=== PATIENT | female | born 1965 | race Caucasian/White ===

== ENCOUNTER 2018-10-29 07:19 | Day surgery (SDC) | payer OTHER ==
[~2018-10-29] VITALS: Ht 167.6 cm; Wt 79.5 kg
[2018-10-29] VITALS (13 sets, daily range): BP systolic 117–144; BP diastolic 46–74; PULSE 54–68; RESP 9–20; Ht 167.6 cm; Wt 79.5 kg
[2018-10-29] MEDS ORDERED: SOD CHLORIDE 0.9% 1,000 ML IV SCH (09:00)
--- NOTE | 2018-10-29 10:10 | PREAC ---
Date/Time of Note Date/Time of Note DATE: 10/29/18 TIME: 10:09 Anesthesia Eval and Record Evaluation Time Pre-Procedure Interview DATE: 10/29/18 TIME: 10:09 Age 53 Sex female NPO: 8 hrs Preoperative diagnosis left chest wall cyst Planned procedure left chest wall cyst excision Past Medical History Past Medical History: Includes GI: Obesity Surgery & Anesthesia Issues No known issue Meds Anticoagulation: No Beta Brayan within 24 hr: No Reason Beta Brayan not given: Pt. not on B-Brayan No Active Prescriptions or Reported Meds Current Medications Sodium Chloride 1,000 ml @ 75 mls/hr [id number] IV Last administered on 10/29/18at 09:00; Admin Dose 75 MLS/HR; Start 10/29/18 at 09:00 Meds reviewed: Yes Allergies Coded Allergies: No Known Allergy (Unverified , 10/29/18) Allergies Reviewed: Yes Labs/Studies Labs Reviewed: Reviewed by anesthesiologist Result Diagram: 10/29/18 0840 10/29/18 0840 Laboratory Tests 10/29/18 08:40 test: Negative Pre-procedure Exam Last vitals Vital Signs Date Temp Pulse Resp B/P (MAP) Pulse Ox O2 O2 Flow FiO2 Time Delivery Rate 10/29/18 97.8 60 16 117/58 99 08:53 (77) Airway: Adequate mouth opening, Adequate thyromental dist Mallampati: Mallampati III Teeth: Normal Lung: Normal Heart: Normal ASA Physical Status ASA physical status: 2 Emergency: None Planned Anesthetic General/MAC: LMA Pre-operative Attestations Prior to commencing anesthesia and surgery, the patient was re-evaluated, there was verification of: *The patient's identity *The results of appropriate recent lab work and preoperative vital signs *The above evaluation not changing prior to induction *Anesthetic plan, risk benefits, alternative and complications discussed with patient/family; questions answered; patient/family understands, accepts and wishes to proceed. HARRY MCCRAY SLACKMAN Oct 29, 2018 10:10
[2018-10-29] MEDS ORDERED: MIDAZOLAM 1 MG/ML 2 ML INJ ONE (10:15)
[2018-10-29] MEDS ORDERED: FENTAnyl 50 MCG/ML VIAL ONE (10:15)
[2018-10-29] MEDS ORDERED: LIDOCAINE 2% (SDV) 5 ML INJ ONE (10:18)
[2018-10-29] MEDS ORDERED: PROPOFOL 20 ML ONE (10:18)
[2018-10-29] MEDS ORDERED: CEFAZOLIN 1 GM INJ ONE (10:18)
[2018-10-29] MEDS ORDERED: BUPIVACAINE 0.25%/EPI (SDV) 30 ML INJ ONE (10:33)
[2018-10-29] MEDS ORDERED: EPHEDrine 25 MG/5 ML SYG ONE (11:09)
[2018-10-29] MEDS ORDERED: ONDANSETRON 4 MG INJ ONE (11:10)
[2018-10-29] MEDS ORDERED: DEXAMETHASONE 4 MG/ML 5 ML INJ ONE (11:10)
--- NOTE | 2018-10-29 11:40 | PAC ---
Date/Time of Note Date/Time of Note DATE: 10/29/18 TIME: 11:40 Post-Anesthesia Notes Post-Anesthesia Note Last documented vital signs 140/57, 96%, 55, RR15 Vital Signs Date Temp Pulse Resp B/P (MAP) Pulse Ox O2 O2 Flow FiO2 Time Delivery Rate 10/29/18 97.8 60 16 117/58 99 08:53 (77) Activity: WNL Respiratory function: WNL Cardiovascular function: WNL Mental status: Baseline Pain reasonably controlled: Yes Hydration appropriate: Yes Nausea/Vomiting absent: Yes HARRY MCCRAY CRNA Oct 29, 2018 11:40
--- NOTE | 2018-10-29 11:48 | SIPON ---
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 Pigmented skin lesion adjacent to this subcutaneous lesion. Postoperative Diagnosis The same pending pathology report. Operation/Procedure Performed Excision of the subcutaneous lesion with piece of skin on top of it. Section of the pigmented lesion with piece of the skin around it and subcutaneous tissue. Surgeon see signature line classroom assistant None Anesthesia: general Estimated blood loss: none Transfusion Required none Specimen Two specimens were sent for pathology evaluation. #1 labeled a which is the chronic lesion subcutaneously which has had recurrent drainage, orientation just proximal 2 long sutures. 2. Pigmented skin lesion which was marked with 2 short sutures distal part. Grafts/Implants none Complications none DARRYL AREVALO MD Oct 29, 2018 11:48
[2018-10-29] MEDS ORDERED: LACTATED RINGER'S 1,000 ML IV SCH (11:51)
[2018-10-29] MEDS ORDERED: ONDANSETRON 4 MG INJ IV PRN ×2 (12:00)
[2018-10-29] MEDS ORDERED: OXYCODONE/ACETAMINOPHEN (5/325) TAB PO PRN ×2 (12:00)
[2018-10-29] MEDS ORDERED: LABETALOL HCL 20MG INJ IV PRN (12:00)
[2018-10-29] MEDS ORDERED: FENTAnyl 50 MCG/ML VIAL IV PRN ×2 (12:00)
[2018-10-29] MEDS ORDERED: MEPERIDINE 25 MG INJ IV PRN (12:00)
[2018-10-29] MEDS ORDERED: HYDROCODONE/APAP (5/325) TAB PO PRN (12:00)
--- NOTE | 2018-10-29 23:19 | OPR ---
DATE OF OPERATION: 10/29/2018 SURGEON: Zeke Arevalo MD SPECIFICATION MANAGER: None. ANESTHESIA: General and local. ANESTHESIOLOGIST: Certified nurse tube bender Collin Varghese. ESTIMATED BLOOD LOSS: Nil. PREOPERATIVE DIAGNOSES: 1. Chronic infection in the anterior left upper chest wall and recurrent drainage and subcutaneous m ass. 2. Pigmented skin lesion at the same location which has been there for about a year, suspicious that recently has been changing in color. OPERATION PERFORMED: Elliptical skin incision and removal of the subcutaneous mass and also pigmente d lesion in 2 pieces. Specimen A marked with 2 long sutures, orientation proximal end. The second s pecimen, marked specimen B, is the pigmented lesion with the skin around it and subcutaneous tissue, marked with 2 short sutures, sent for pathologic evaluation. COMPLICATIONS: None. INDICATION: This is a 53-year-old female who presented to surgical clinic complaining of recurrence of some kind of infection and drainage from the lesion in the left upper anterior chest wall that had an operation on it 4 years ago in [place] and she was okay for 3 years, recently again has got recurren ce of the pathology and problem and infection and creamy material is draining out. Also, there is a pigmented lesion close by. This one, the patient thinks that the color has changed. 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 T his patient wanted to remove these problems by the surgery, so discussed with the patient alternative s, risk of operation, benefits and complications, and she understood and accepts that. We booked the patient for excision procedure. The patient was seen in the morning of operation in the [facility] are a, again discussed with the patient and her , the procedure was explained and area was marked and the patient was taken to the operating room. DESCRIPTION OF PROCEDURE: The patient was brought to the operating room, placed on operating table i n supine position. Anesthesia was induced by the anesthesiologist. Two grams of Ancef was given IV. Area of the operation was prepped with Betadine and draped in a sterile fashion. Timeout was boogie d. The patient identified, site of operation and procedure were discussed among the team. All throu gh the operation 0.25% Marcaine with epinephrine solution for local anesthesia was used. After adequ ate general anesthesia and local anesthesia were given, an elliptical skin incision was made about 2. 5 cm long and 6 mm wide and carried down through subcutaneous tissue deep to the subcutaneous fat lay er in such a way that encompassing what appeared to be a subcutaneous lesion completely was from normal-appearing tissues and also the mole was included in this excision. The wound was thorou ghly irrigated. Hemostasis achieved with electrocautery. Closure was performed in 2 layers, deep la chano 3-0 Vicryl interrupted sutures were taken and then the subcutaneous tissue was approximated with #5-0 Monocryl in continuous subcuticular fascial closure was performed. At the end Dermabond was mahnaz lied over the incision line. Then a dry dressing was applied on top of it. The patient tolerated pr ocedure well. Sponge, needle, and instrument count reported to be correct x2. The specimen was 2 pi eces, one was what appeared to be chronic shrunken dermoid cyst and capsule, and #2 was a mole with s urrounding normal skin. Both were oriented with white suture material and was sent for pathologic ev aluation as specimen A and B, A being the dermoid cyst and mass and B being the mole. ESTIMATED BLOOD LOSS: Nil. The patient was extubated in stable condition, transferred to recovery r oom. Dictated By: ZEKE AREVALO MD PS/NTS Conf#: [id number] DID#: [id number] CC: ARASELI DAMIAN MD;*EndCC*
== END 2018-10-29 14:19 | disposition home or self-care (01) ==
LOC: SDS 07:19
DX: D22.5 Melanocytic nevi of trunk (principal); L08.9 Local infection of the skin and subcutaneous tissue, unspecified
CPT/HCPCS: 11403; 12031; 80053; 84703; 85025; 85610; 85730; 88305; 88307; J0690; J1100; J2250; J2405; J3010; Z7512; Z7610